=== PATIENT | female | born 1970 | race Caucasian/White ===

== ENCOUNTER 2016-10-10 17:03 | Emergency (ER) | payer OTHER ==
[~2016-10-10] VITALS: Ht 170.2 cm; Wt 100.7 kg
[~2016-10-10 17:03] MED LIST: BACTERICIN30 GM TP; CITRATE OF MAG296 ML PO; COLACE100 MG PO; NAPROSYN500 MG PO
[2016-10-10 19:00] LABS: HEMATOCRIT 44.3 % (36.0-46.0); MCH 28.9 PG (29.0-34.0); MCHC 32.3 G/DL (30.0-36.0); MCV 89.7 FL (83-99); MEAN PLAT.VOLUME 9.3 uM^3 (9.5-12.4); PLATELET COUNT 258 K/uL (156-360); RBC DIS.WIDTH-CV 12.7 % (11.8-14.6); RBC DIS.WIDTH-SD 41.6 % (39-53); RED BLOOD COUNT 4.94 M/uL (3.80-5.20)
[2016-10-10 19:10] LABS: CHLORIDE 106 mEq/L (99-109); POTASSIUM 3.8 mEq/L (3.7-5.4); SODIUM 140 mEq/L (136-147)
[2016-10-10 19:12] LABS: GLUCOSE 97 mg/dL (70-99)
[2016-10-10 19:13] LABS: ANION GAP 8 MEQ/L (2-14)
[2016-10-10 19:14] LABS: TOTAL BILIRUBIN 0.4 mg/dL (0.0-1.0)
[2016-10-10 19:15] LABS: ALKALINE PHOSPHATASE 82 IU/L (3-129)
[2016-10-10 19:16] LABS: GFR ESTIMATE (CALCULATED) > 59 mL/min/
[2016-10-10 19:17] LABS: UREA NITROGEN (BUN) 9 mg/dL (9-23)
[2016-10-10 19:24] LABS: QUANTITATIVE HCG < 4.0 MIU/ML
[2016-10-10] MEDS ORDERED: ZOFRAN ODT4 MG PO (20:29)
[2016-10-10] MEDS ORDERED: FIORICET 50-301 EACH PO (20:29)
[2016-10-10 20:49] VITALS: BP 121/79
== END 2016-10-10 20:50 | disposition home or self-care (01) ==
LOC: EME 17:03 → EXP 17:03
PROVIDERS: Physician Assistant
DX: G43.909 Migraine, unspecified, not intractable, without status migrainosus (principal); Z88.5 Allergy status to narcotic agent; Z88.1 Allergy status to other antibiotic agents; Z88.2 Allergy status to sulfonamides; Z88.8 Allergy status to other drugs, medicaments and biological substances; Z88.0 Allergy status to penicillin
CPT/HCPCS: 70450; 80053; 84702; 85027; 99281; 99284; J1200; J1885; J2765; J7030

== ENCOUNTER → 2016-11-08 | Outpatient (CLI) | payer OTHER ==
[~2016-11-08] MED LIST changes: +FIORICET 50-301 EACH PO; +ZOFRAN ODT4 MG PO
== END | disposition home or self-care (01) ==
LOC: RAD 10-31 15:00
PROC: 009U3ZZ Drainage of Spinal Canal, Percutaneous Approach (ICD-10-PCS; principal; 2016-11-08)
DX: G93.2 Benign intracranial hypertension (principal)
CPT/HCPCS: 62270; 77003; 82945; 84157